=== PATIENT | female | born 1980 | race Two or more races ===

== ENCOUNTER 2017-04-02 09:56 | Emergency (ER) | payer OTHER ==
[~2017-04-02] VITALS: Ht 175.3 cm; Wt 58.5 kg
[2017-04-02 10:12] VITALS: BP 104/71
== END 2017-04-02 10:59 | disposition home or self-care (01) ==
LOC: ER 09:57
DX: S06.0X0A Concussion without loss of consciousness, initial encounter (principal); W22.09XA Striking against other stationary object, initial encounter; Y93.01 Activity, walking, marching and hiking; Y92.89 Other specified places as the place of occurrence of the external cause; Y99.8 Other external cause status
CPT/HCPCS: 99282; A4606; Z7610

== ENCOUNTER 2020-08-23 16:11 | Emergency (ER) | payer OTHER ==
[~2020-08-23] VITALS: Ht 167.6 cm; Wt 68.9 kg
[2020-08-23 16:43] VITALS: BP 100/62
[2020-08-23] MEDS ORDERED: FLUORESCEIN SODIUM OPHTH 1 EA STRIP ONE (18:24)
[2020-08-23] MEDS ORDERED: ACETAMINOPHEN 325 MG TABLET ONE (18:26)
[2020-08-23] MEDS: ACETAMINOPHEN 325 MG TABLET PO ONE (18:28)
[2020-08-23] MEDS: FLUORESCEIN SODIUM OPHTH 1 EA STRIP OP ONE (18:38)
[2020-08-23] MEDS: TETRACAINE HCL 0.5% OPHTALMIC 15 ML BOTTLE OP ONE (18:38)
--- NOTE | 2020-08-23 18:52 | NUR ---
Patient discharged to home in stable condition. Written and verbal after care instructions given. Patient verbalizes understanding of instruction.
== END 2020-08-23 18:53 | disposition home or self-care (01) ==
LOC: ER 16:15
DX: S93.491A Sprain of other ligament of right ankle, initial encounter (principal); S00.03XA Contusion of scalp, initial encounter; M62.830 Muscle spasm of back; H57.89 Other specified disorders of eye and adnexa; W01.198A Fall on same level from slipping, tripping and stumbling with subsequent striking against other object, initial encounter; Y93.89 Activity, other specified; Y92.89 Other specified places as the place of occurrence of the external cause; Y99.8 Other external cause status
CPT/HCPCS: 73610-TC; 73630-TC

== ENCOUNTER 2020-08-30 18:39 | Emergency (ER) | payer MEDICAID ==
[~2020-08-30] VITALS: Ht 167.6 cm; Wt 69.4 kg
[2020-08-30 18:39] VITALS: BP 123/81
[2020-08-30] MEDS ORDERED: IBUP-1955 PO (19:11)
== END 2020-08-30 19:25 | disposition home or self-care (01) ==
LOC: ER 18:46
DX: R07.89 Other chest pain (principal); Z98.890 Other specified postprocedural states

== ENCOUNTER 2021-07-21 19:21 | Emergency (ER) | payer MEDICAID ==
[~2021-07-21] VITALS: Ht 167.6 cm; Wt 69.4 kg
[~2021-07-21 19:21] MED LIST: IBUP-1955 PO
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
[2021-07-21 21:07] LABS: BASOPHILS % (AUTO) 0.4 % (0.0-2.0); EOSINOPHILS % (AUTO) 2.9 % (0.0-6.0); HEMATOCRIT 35 % (33-45); HEMOGLOBIN 11.1 g/dL (11.5-14.8); LYMPHOCYTES % (AUTO) 31.7 % (20.0-44.0); MEAN CORPUSCULAR HGB CONC 32 g/dl (31.0-36.0); MEAN CORPUSCULAR VOLUME 65 fL (82-100); MONOCYTES # (AUTO) 0.5 K/uL (0.1-1.30); MONOCYTES % (AUTO) 8.5 % (2.0-12.0); NEUTROPHILS # (AUTO) 3.6 K/uL (1.8-8.9); NEUTROPHILS % (AUTO) 56.5 % (43.0-81.0); PLATELET COUNT (AUTO) 225 K/uL (150-450); WHITE BLOOD COUNT (AUTO) 6.4 K/uL (4.3-11.0)
--- NOTE | 2021-07-21 21:07 | NUR ---
BLOOD DRAWN AND SENR TO LAB
[2021-07-21 21:40] LABS: LIPASE 106 U/L (73-393)
[2021-07-21 21:41] LABS: ALBUMIN 3.8 g/dL (3.4-5.0); BILIRUBIN,DIRECT 0.1 mg/dL (0.0-0.2); BILIRUBIN,TOTAL 0.4 mg/dL (0.2-1.0); CALCIUM, SERUM 8.6 mg/dL (8.5-10.1); CREATININE 0.8 mg/dL (0.6-1.3); POTASSIUM 3.6 mmol/L (3.5-5.1); TOTAL PROTEIN, SERUM 7.3 g/dL (6.4-8.2)
[2021-07-21] MEDS ORDERED: IV NS 0.9% 250 ML IV ONE (21:48)
[2021-07-21] MEDS ORDERED: IOHEXOL-300 100 ML VIAL IV ONE (21:48)
[2021-07-21 22:25] LABS: BAND % (MANUAL) 1 % (0.0-5.0); EOSINOPHILS % (MANUAL) 3 % (0-4); LYMPHOCYTES % (MANUAL) 32 % (16-48); MONOCYTES % (MANUAL) 5 % (0-11.0); NEUTROPHILS % (MANUAL) 59 (42-76)
--- NOTE | 2021-07-21 23:05 | NUR ---
Patient discharged to home in stable condition. Written and verbal after care instructions given. Patient verbalizes understanding of instruction.
[2021-07-21 23:06] VITALS: BP 115/60
== END 2021-07-21 23:08 | disposition home or self-care (01) ==
LOC: ER 19:24
DX: K43.9 Ventral hernia without obstruction or gangrene (principal); F41.9 Anxiety disorder, unspecified; Z98.82 Breast implant status; Z79.1 Long term (current) use of non-steroidal anti-inflammatories (NSAID)
CPT/HCPCS: 36415; 74177; 80048; 80076; 83690; 84702; 85007; 85025; 99285; J7050; Q9967

== ENCOUNTER → 2022-02-04 | Emergency (ER) | payer MEDICAID ==
[~2022-02-04] VITALS: Ht 167.6 cm; Wt 70.3 kg
[~2022-02-04] MED LIST changes: +NAPR-1164 PO
[2022-02-04 14:19] VITALS: BP 115/69
== END ==
LOC: ER 14:06
DX: S50.02XA Contusion of left elbow, initial encounter (principal); S50.01XA Contusion of right elbow, initial encounter; S80.02XA Contusion of left knee, initial encounter; S80.01XA Contusion of right knee, initial encounter; F41.9 Anxiety disorder, unspecified; F43.10 Post-traumatic stress disorder, unspecified; W10.8XXA Fall (on) (from) other stairs and steps, initial encounter; Y93.89 Activity, other specified; Y92.89 Other specified places as the place of occurrence of the external cause; Y99.8 Other external cause status
CPT/HCPCS: 73080-TC; 73564-TC

== ENCOUNTER 2022-02-06 15:16 | Emergency (ER) | payer MEDICAID ==
[~2022-02-06] VITALS: Ht 167.6 cm; Wt 68.0 kg
[~2022-02-06 15:16] MED LIST changes: -NAPR-1164 PO
[2022-02-06 15:53] VITALS: BP 132/70
--- NOTE | 2022-02-06 16:00 | NUR ---
in NO obvious distress. AAO/Appropriate-responsive. GCS-15 Neuro intact Ambulatory gait even and steady
[2022-02-06 16:30] LABS: BASOPHILS % (AUTO) 0.4 % (0.0-2.0); EOSINOPHILS % (AUTO) 1.3 % (0.0-6.0); HEMATOCRIT 36 % (33-45); HEMOGLOBIN 11.1 g/dL (11.5-14.8); LYMPHOCYTES # (AUTO) 1.5 K/uL (0.8-4.8); LYMPHOCYTES % (AUTO) 31.8 % (20.0-44.0); MEAN CORPUSCULAR HGB CONC 31 g/dl (31.0-36.0); MEAN CORPUSCULAR VOLUME 66 fL (82-100); MONOCYTES # (AUTO) 0.3 K/uL (0.1-1.30); MONOCYTES % (AUTO) 6.9 % (2.0-12.0); NEUTROPHILS # (AUTO) 2.8 K/uL (1.8-8.9); NEUTROPHILS % (AUTO) 59.6 % (43.0-81.0); PLATELET COUNT (AUTO) 272 K/uL (150-450); RED BLOOD CELL COUNT(AUTO) 5.38 MIL/uL (4.0-5.2); WHITE BLOOD COUNT (AUTO) 4.6 K/uL (4.3-11.0)
[2022-02-06 16:48] LABS: CALCIUM, SERUM 8.4 mg/dL (8.5-10.1); CREATININE 0.7 mg/dL (0.6-1.3); POTASSIUM 3.5 mmol/L (3.5-5.1)
[2022-02-06 16:54] LABS: ALBUMIN 3.9 g/dL (3.4-5.0); BILIRUBIN,DIRECT 0.1 mg/dL (0.0-0.2); BILIRUBIN,TOTAL 0.5 mg/dL (0.2-1.0); TOTAL PROTEIN, SERUM 7.6 g/dL (6.4-8.2)
[2022-02-06] MEDS ORDERED: ACETAMINOPHEN 325 MG TABLET ONE (17:30)
[2022-02-06] MEDS ORDERED: ACETAMINOPHEN 325 MG TABLET PO ONE (17:30)
[2022-02-06] MEDS ORDERED: NAPR-1164 PO (18:42)
--- NOTE | 2022-02-06 18:48 | NUR ---
Patient discharged to home in stable condition. Written and verbal after care instructions given. Patient verbalizes understanding of instruction.
[2022-02-07 03:27] LABS: BASOPHILS % (MANUAL) 0 % (0.0-2.0); EOSINOPHILS % (MANUAL) 2 % (0-4); LYMPHOCYTES % (MANUAL) 24 % (16-48); MONOCYTES % (MANUAL) 7 % (0-11.0); NEUTROPHILS % (MANUAL) 67 (42-76)
== END 2022-02-06 18:52 | disposition home or self-care (01) ==
LOC: ER 15:19
DX: S06.0X0A Concussion without loss of consciousness, initial encounter (principal); S69.91XA Unspecified injury of right wrist, hand and finger(s), initial encounter; F43.10 Post-traumatic stress disorder, unspecified; W17.89XA Other fall from one level to another, initial encounter; Y93.89 Activity, other specified; Y92.89 Other specified places as the place of occurrence of the external cause; Y99.8 Other external cause status
CPT/HCPCS: 36415; 70450-TC; 72125-TC; 73030-TC; 73060-TC; 73090-TC; 73130-TC; 80048-TC; 80076-TC; 85025-TC